=== PATIENT | male | born 1985 | race Caucasian/White ===

== ENCOUNTER 2016-05-02 | Outpatient (CLI) | payer MEDICAID | END 2016-05-02 11:36 | disposition critical access hospital (66) | DX: R41.82 Altered mental status, unspecified (principal) | CPT/HCPCS: A0425; A0429 ==

== ENCOUNTER 2016-05-02 11:39 | Emergency (ER) | payer MEDICAID, OTHER ==
[2016-05-02] MEDS ORDERED: FOLIC ACID INJ 1 MG, THIAMINE INJ 100 MG, MAGNESIUM SULFATE 2 GM, MULTIVITAMIN 10 ML in... IV STA ×5 (12:51)
[2016-05-02] MEDS ORDERED: THIAMINE 100 MG/1 ML 2 ML MDV ONE (13:19)
== END 2016-05-02 16:03 | disposition home or self-care (01) ==
DX: F10.121 Alcohol abuse with intoxication delirium (principal); Y90.8 Blood alcohol level of 240 mg/100 ml or more
CPT/HCPCS: 36415; 80053; 80320; 83690; 85025; 99283; 99284; J3411